=== PATIENT | male | born 1985 | race Caucasian/White ===

== ENCOUNTER 2016-12-28 17:20 | Emergency (ER) | payer OTHER ==
[~2016-12-28] VITALS: Ht 180.3 cm; Wt 97.5 kg
--- NOTE | 2016-12-28 18:33 | ED GI/GU/ABDOMINAL COMPLAINT ---
History of Present Illness General Chief Complaint: Male Genitourinary Problems Stated Complaint: BLOOD IN URINE X4 DAYS Source: patient, old records Exam Limitations: no limitations Vital Signs & Intake/Output Vital Signs & Intake/Output Vital Signs Date Time Temp Pulse Resp B/P Pulse O2 O2 Flow FiO2 Ox Delivery Rate 12/28 1940 98.0 98 18 136/72 98 Room Air 12/28 1728 97.7 110 18 160/104 99 Room Air Allergies Coded Allergies: MDX - PCN (penicillin) (PCN (PENICILLIN)) (08/15/11) Reconcile Medications Ciprofloxacin HCl (Cipro) 500 MG TABLET 1 TAB PO BID infection Triage Note: REPORTS HEMATURIA SINCE WEDNESDAY. NO PMHX OF THE SAME. TODAY HE BEGAN EXPERIENCING PAINFULL URINATION WELL Triage Nurses Notes Reviewed? yes HPI: Patient is a 31-year-old male presents for evaluation of hematuria. Hematuria onset 4 days ago. Patient reports that he was having painless hematuria until today. Today patient felt like there was mild burning sensation with urination and at times was having some difficulty urinating. Patient noticed a small blood clot in his urine today. Mild burning sensation to the right flank intermittent. Patient has a history of kidney stones, reports that this feels different. Patient denies back pain, fevers, chills, nausea, vomiting. (LAQUITA ZIMMER) Past History Travel History Traveled to [place] past 21 day No Medical History Any Pertinent Medical History? see below for history Cardiovascular: hypertension? Renal: kidney stones Surgical History Surgical History: appendectomy Psychosocial History Who do you live with Spouse What is your primary language French Tobacco Use: Never used ETOH Use: occasional use Family History Hx Contributory? No (LAQUITA ZIMMER) Review of Systems Review of Systems Constitutional: Denies: chills, fever. EENTM: Reports: no symptoms. Respiratory: Denies: cough, short of breath. Cardiovascular: Denies: chest pain. GI: Reports: abdominal pain (mild right flank burning). Genitourinary: Reports: dysuria, hematuria. Denies: frequency, urgency. Musculoskeletal: Denies: back pain. Skin: Reports: no symptoms. Neurological/Psychological: Reports: no symptoms. Hematologic/Endocrine: Reports: see HPI. Immunologic/Allergic: Reports: no symptoms. (LAQUITA ZIMMER) Physical Exam Physical Exam General Appearance: well developed/nourished, alert, awake Head: atraumatic, normal appearance Eyes: Bilateral: normal appearance. Ears, Nose, Throat, Mouth: hearing grossly normal Neck: normal inspection, full range of motion Respiratory: no respiratory distress Cardiovascular: regular rate/rhythm (no murmur) Gastrointestinal: normal bowel sounds, soft, non-tender Back: normal inspection, normal range of motion, NO cva TENDERNESS Extremities: normal range of motion Neurologic/Psych: no motor/sensory deficits, awake, alert, oriented x 3, normal gait, normal mood/affect Skin: intact, normal color, warm/dry Core Measures ACS in differential dx? No Severe Sepsis Present: No Septic Shock Present: No (RAQUEL DAN,LAQUITA) Progress Differential Diagnosis: urinary tract infection, prostatitis, bladder growth, bladder malignancy, renal colic Plan of Care: Orders Procedure Date/time Status COMPREHENSIVE METABOLIC PANEL 12/28 1843 Complete CBC WITHOUT DIFFERENTIAL 12/28 1843 Complete Add-on Test (ER Only) 12/28 1838 Active CULTURE,URINE 12/28 173 Active URINALYSIS 12/28 1721 Complete Laboratory Tests 12/28/16 1845: Anion Gap 11, Estimated GFR > 60, BUN/Creatinine Ratio 16.7, Glucose 89, Calcium 9.4, Total Bilirubin 0.5, AST 26, ALT 58, Alkaline Phosphatase 61, Total Protein 7.5, Albumin 4.2, Globulin 3.3, Albumin/Globulin Ratio 1.3, CBC w Diff NO MAN DIFF REQ, RBC 5.29, MCV 84.1, MCH 29.1, RDW 13.1, MPV 7.9, Gran % 60.1, Lymphocytes % 26.4, Monocytes % 9.3, Eosinophils % 3.4, Basophils % 0.8, Absolute Granulocytes 3.6, Absolute Lymphocytes 1.6, Absolute Monocytes 0.6, Absolute Eosinophils 0.2, Absolute Basophils 0, PUBS MCHC 34.6 12/28/161736: Urine Color BLDY H, Urine Clarity TURBD H, Urine pH 6.5, Ur Specific [place] > = 1.030, Urine Protein >=300 H, Urine Ketones TRACE H, Urine Nitrite POS H, Urine Bilirubin NEG@ICTO, Urine Urobilinogen 1.0, Ur Leukocyte Esterase SMALL H , Ur Microscopic SEDIMENT EXAMINED, Urine RBC PACKD H, Urine Hemoglobin LARGE H, Urine Glucose NEG Microbiology 12/28 1737 URINE ROUT: Urine Culture - RECD Results of labs and CT scan discussed with patient. Patient nontoxic appearing, no signs of bladder distention on exam or CT scan. Patient appears stable for discharge, stressed importance of follow-up with urology. Also provided information for primary care follow-up regarding patient's blood pressure. (RAQUEL DAN,LAQUITA) Diagnostic Imaging: Viewed by Me: CT Scan. Discussed w/RAD: CT Scan. Radiology Impression: PATIENT: ANGEL HAMEED PRESENT AGE: 31 PATIENT ACCOUNT NO: [id number] : 85 LOCATION: [facility] ORDERING PHYSICIAN: LAQUITA DAN SERVICE DATE: 12/28/16 EXAM TYPE: CAT - CT ABD & PELVIS W/O IV CONTRAS EXAMINATION: CT ABDOMEN AND PELVIS WITHOUT CONTRAST CLINICAL INFORMATION: Hematuria. Mild dysuria. Pain right flank COMPARISON: CT abdomen pelvis 11/24/2013 dictated report. Images not available for review TECHNIQUE: Multidetector volumetric imaging was performed from the superior aspect of the liver through the pubic symphysis. Sagittal and coronal reformatted images were obtained on the technologist's workstation. DLP: 661.64 mGy-cm. FINDINGS: LUNG BASES: The visualized lung bases are unremarkable. LIVER, GALLBLADDER, AND BILIARY TREE: The liver is normal in size, shape, and attenuation. No focal hepatic lesion or biliary ductal dilatation is present. The gallbladder is unremarkable with no evidence of radiopaque gallstones, gallbladder wall thickening, or obvious pericholecystic inflammatory changes. PANCREAS: Unremarkable. SPLEEN: Unremarkable. ADRENAL GLANDS: Unremarkable. KIDNEYS AND URETERS: The kidneys are normal in size, shape, and attenuation. No hydronephrosis, hydroureter, or calculi seen. No perinephric stranding. BLADDER: Unremarkable. GASTROINTESTINAL TRACT: The small and large bowel are unremarkable. The appendix is surgically removed.. ABDOMINAL WALL: No significant hernia is appreciated. LYMPH NODES: Normal. VASCULAR: Unremarkable. PELVIC VISCERA: Unremarkable. OSSEOUS STRUCTURES: Multilevel degenerative spurring at the anterior endplates of the thoracic spine. Mild degenerative change of the facet joints at the lower lumbar spine. IMPRESSION: No acute abnormality CT scan abdomen pelvis. DICTATED BY: MEE BUSTILLOS MD DATE/TIME DICTATED:12/28/161903 HOME LENDING OFFICER:LISA DATE/TIME TRANSCRIBED:1903 CONFIDENTIAL, DO NOT COPY WITHOUT APPROPRIATE AUTHORIZATION. < Electronically signed in Other Vendor System> SIGNED BY: MEE BUSTILLOS MD 1911 Initial ED EKG: none (LAQUITA ZIMMER) Departure Departure Time of Disposition: 1927 Disposition: HOME OR SELF CARE Condition: Stable Clinical Impression Primary Impression: Hematuria Referrals: LUZ GUAJARDO,ELISE SMALLS MD,KAROL THOMAS MD,ENEDELIA WILLAMS MD,DEYSI PATIENT HAS NO PRIMARY CARE DR (PCP/Family) Additional Instructions: Follow-up with Dr. Smalls(urologist) within 1-2 weeks for further evaluation, call in the morning for appointment. Also follow-up with one of the primary care doctors listed in your discharge paperwork to establish a doctor in for further evaluation of her elevated blood pressure. Call tomorrow for appointment. Return to the emergency department if abdominal pain, unable to urinate, fevers, chills, or worsening of symptoms. Departure Forms: Customer Survey General Discharge Information Prescriptions: Current Visit Scripts Ciprofloxacin HCl (Cipro) 1 TAB PO BID #14 TAB (LAQUITA ZIMMER) PA/BOAT REPAIRER Co-Sign Statement Statement: ED Attending supervision documentation- [] I saw and evaluated the patient. I have also reviewed all the pertinent lab results and diagnostic results. I agree with the findings and the plan of care as documented in the PA's/BOAT REPAIRER's documentation. [x] I have reviewed the ED Record and agree with the PA's/BOAT REPAIRER's documentation. [] Additions or exceptions (if any) to the PAs/BOAT REPAIRER's note and plan are summarized below: [] (CONSTANTINO MORRISSEY DO
[2016-12-28 18:52] LABS: ABSOLUTE BASOPHIL COUNT 0 /CUMM (0.0-0.2); ABSOLUTE EOSINOPHIL COUNT 0.2 /CUMM (0.0-0.7); ABSOLUTE GRANULOCYTE CT 3.6 /CUMM (1.4-6.5); ABSOLUTE LYMPH COUNT 1.6 /CUMM (1.2-3.4); ABSOLUTE MONOCYTE COUNT 0.6 /CUMM (0.10-0.60); BASOPHIL % 0.8 % (0.0-2.0); EOSINOPHIL % 3.4 % (0-5); GRANULOCYTE % 60.1 % (42.2-75.2); HEMATOCRIT 44.5 % (42-52); MEAN CORPUSCULAR HGB 29.1 PG (27.0-31.0); MEAN CORPUSCULAR HGB CONC 34.6 G/DL (33.0-37.0); MEAN CORPUSCULAR VOLUME 84.1 FL (80.0-94.0); MEAN PLATELET VOLUME 7.9 FL (7.4-10.4); PLATELET COUNT 218 /CUMM (130-400); RBC DISTRIBUTION WIDTH 13.1 % (11.5-14.5); RED BLOOD CELL CT 5.29 /CUMM (4.70-6.10)
--- NOTE | 2016-12-28 19:12 | CT SCAN REPORT ---
EXAMINATION: CT ABDOMEN AND PELVIS WITHOUT CONTRAST CLINICAL INFORMATION: Hematuria. Mild dysuria. Pain right flank COMPARISON: CT abdomen pelvis 11/24/2013 dictated report. Images not available for review TECHNIQUE: Multidetector volumetric imaging was performed from the superior aspect of the liver through the pubic symphysis. Sagittal and coronal reformatted images were obtained on the technologist's workstation. DLP: 661.64 mGy-cm. FINDINGS: LUNG BASES: The visualized lung bases are unremarkable. LIVER, GALLBLADDER, AND BILIARY TREE: The liver is normal in size, shape, and attenuation. No focal hepatic lesion or biliary ductal dilatation is present. The gallbladder is unremarkable with no evidence of radiopaque gallstones, gallbladder wall thickening, or obvious pericholecystic inflammatory changes. PANCREAS: Unremarkable. SPLEEN: Unremarkable. ADRENAL GLANDS: Unremarkable. KIDNEYS AND URETERS: The kidneys are normal in size, shape, and attenuation. No hydronephrosis, hydroureter, or calculi seen. No perinephric stranding. BLADDER: Unremarkable. GASTROINTESTINAL TRACT: The small and large bowel are unremarkable. The appendix is surgically removed.. ABDOMINAL WALL: No significant hernia is appreciated. LYMPH NODES: Normal. VASCULAR: Unremarkable. PELVIC VISCERA: Unremarkable. OSSEOUS STRUCTURES: Multilevel degenerative spurring at the anterior endplates of the thoracic spine. Mild degenerative change of the facet joints at the lower lumbar spine. IMPRESSION: No acute abnormality CT scan abdomen pelvis.
[2016-12-28] MEDS ORDERED: CIPRO500 M1 PO (19:30)
[2016-12-28 19:40] VITALS: BP 136/72
== END 2016-12-28 19:30 ==
LOC: ERH 17:20
PROVIDERS: Physician Assistant
DX: R31.9 Hematuria, unspecified (principal)
CPT/HCPCS: 74176; 81001; 87086